=== PATIENT | male | born 1990 | race Two or more races ===

== ENCOUNTER 2017-05-10 02:13 | Emergency (ER) | payer MEDICAID ==
[~2017-05-10] VITALS: Ht 165.1 cm; Wt 81.6 kg
[2017-05-10 04:33] LABS: Basophils # (auto) 0.1 uL; Basophils % (auto) 0.5 % (0.0-2.0); Eosinophils # (auto) 0.5 uL; Eosinophils % (auto) 3.8 % (0.0-7.0); Hematocrit 46.1 % (41.0-53.0); Hemoglobin 15.8 g/dL (13.5-17.5); Lymphocytes # (auto) 2.7 uL; Lymphocytes % (auto) 20.3 % (10.0-50.0); Mean Corpuscular Hemoglobin 31.1 pg (28.0-32.0); Mean Corpuscular Hgb Conc. 34.2 g/dL (32.0-36.0); Mean Corpuscular Volume 90.9 fL (80.0-100.0); Mean Platelet Volume 10.2 fL (6.9-10.8); Monocytes # (auto) 0.6 uL; Monocytes % (auto) 4.8 % (0.0-12.0); Neutrophils # (auto) 9.4 uL; Neutrophils % (auto) 70.6 % (37.0-80.0); Nucleated Red Blood Cells % 0.1 %; Platelet Count (auto) 229 10^3/uL (140-450); Red Cell Distribution Width 13.1 % (11.8-14.3); White Blood Cell 13.3 10^3/uL (4.4-10.8)
[2017-05-10 04:53] LABS: BUN/Creatinine Ratio 18.5; Calcium 9.9 mg/dL (8.5-10.1); Potassium 3.6 mmol/L (3.5-5.1)
[2017-05-10 04:56] LABS: Bilirubin, Total 0.2 mg/dL (0.2-1.0); Total Protein 7.6 g/dL (6.4-8.2)
[2017-05-10 06:46] LABS: Urine Bilirubin Negative (Negative); Urine Blood Negative /uL (Negative); Urine Color Yellow (Yellow); Urine Glucose Normal (Normal); Urine Ketone Negative (Negative); Urine Mucus FEW (None Seen); Urine Nitrite Negative (Negative); Urine RBC 10 /hpf (0 - 3); Urine Squamous Epithelial Cell FEW /hpf (<5); Urine Urobilinogen Normal (Negative)
[2017-05-10 07:52] VITALS: BP 143/82
== END 2017-05-10 07:58 | disposition home or self-care (01) ==
LOC: ER 02:21
DX: R10.9 Unspecified abdominal pain (principal); R82.71 Bacteriuria; F15.10 Other stimulant abuse, uncomplicated; F17.210 Nicotine dependence, cigarettes, uncomplicated
CPT/HCPCS: 36415; 74176; 80053; 80307; 81001; 85025

== ENCOUNTER 2017-09-27 11:08 | Inpatient (IN) | payer MEDICAID ==
[~2017-09-27] VITALS: Ht 165.1 cm; Wt 80.8 kg
[2017-09-27 13:08] LABS: Basophils # (auto) 0.1 uL; Basophils % (auto) 0.3 % (0.0-2.0); Eosinophils # (auto) 0 uL; Eosinophils % (auto) 0.3 % (0.0-7.0); Hematocrit 48.5 % (41.0-53.0); Hemoglobin 16.2 g/dL (13.5-17.5); Lymphocytes # (auto) 0.9 uL; Lymphocytes % (auto) 5.4 % (10.0-50.0); Mean Corpuscular Hemoglobin 30.2 pg (28.0-32.0); Mean Corpuscular Hgb Conc. 33.5 g/dL (32.0-36.0); Mean Corpuscular Volume 90.2 fL (80.0-100.0); Monocytes # (auto) 1.1 uL; Monocytes % (auto) 6.9 % (0.0-12.0); Neutrophils # (auto) 14.5 uL; Neutrophils % (auto) 87.1 % (37.0-80.0); Platelet Count (auto) 274 10^3/uL (140-450); Red Blood Cells 5.37 10^6/uL (4.5-5.90); Red Cell Distribution Width 13.6 % (11.8-14.3); White Blood Cell 16.7 10^3/uL (4.4-10.8)
[2017-09-27 13:24] LABS: Albumin 4.4 g/dL (3.4-5.0); Calcium 10.4 mg/dL (8.5-10.1); Potassium 4.3 mmol/L (3.5-5.1)
[2017-09-27 13:33] LABS: Bilirubin, Total 0.7 mg/dL (0.2-1.0); Total Protein 8.7 g/dL (6.4-8.2)
[2017-09-27] MEDS ORDERED: SODIUM CHLORIDE 0.9% 1,000 ML IVB ONE (15:19)
[2017-09-27] MEDS ORDERED: ONDANSETRON HCL 4 MG/2 ML VIAL IV ONE (15:45)
[2017-09-27] MEDS ORDERED: SODIUM CHLORIDE 0.9% 1,000 ML IV ONE (15:45)
[2017-09-27 15:52] LABS: INR 0.92 (0.9-1.15)
[2017-09-27] MEDS ORDERED: PROMETHAZINE HCL 25 MG/ML 1ML IV PRN (17:45)
[2017-09-27] MEDS ORDERED: TEMAZEPAM 15 MG CAP PO PRN (17:45)
[2017-09-27] MEDS ORDERED: MORPHINE SULFATE 4 MG/ML SYR/VIAL IV PRN ×3 (17:45)
[2017-09-27] MEDS ORDERED: LORazepam 0.5 MG TAB PO PRN (17:45)
[2017-09-27] MEDS ORDERED: cefTRIAXone 1GM/10ml IVPUSH 10 ML IV ONE (17:45)
[2017-09-27] MEDS ORDERED: NITROGLYCERIN 0.4 MG SL TAB SL PRN (17:45)
[2017-09-27] MEDS: SODIUM CHLORIDE 0.9% 1,000 ML IV SCH (18:16)
[2017-09-27] MEDS ORDERED: chlordiazePOXIDE HCL 25 MG CAP PO PRN (18:30)
[2017-09-27] MEDS ORDERED: THIAMINE HCL 100 MG/ML 2ML VIAL IV ONE (18:30)
[2017-09-27] MEDS: metroNIDAZOLE 500MG/100ML 100 ML IV SCH (18:37)
[2017-09-27] MEDS: FAMOTIDINE (10MG/ML) 2ML VL IV SCH (18:37)
[2017-09-27 22:00] VITALS: BP 122/83
[2017-09-28] MEDS ORDERED: chlordiazePOXIDE HCL 5 MG CAP PO SCH
[2017-09-28] MEDS: metroNIDAZOLE 500MG/100ML 100 ML IV SCH ×4 (00:26→17:40)
[2017-09-28] MEDS: SODIUM CHLORIDE 0.9% 1,000 ML IV SCH ×2 (03:09→13:44)
[2017-09-28 05:31] VITALS: BP 115/55
[2017-09-28] MEDS: FAMOTIDINE (10MG/ML) 2ML VL IV SCH ×2 (05:40→17:40)
[2017-09-28 06:40] LABS: Basophils # (auto) 0.1 uL; Basophils % (auto) 0.5 % (0.0-2.0); Eosinophils # (auto) 0.7 uL; Eosinophils % (auto) 6.1 % (0.0-7.0); Hemoglobin 14.2 g/dL (13.5-17.5); Lymphocytes # (auto) 2.6 uL; Lymphocytes % (auto) 23.4 % (10.0-50.0); Mean Corpuscular Hemoglobin 30.8 pg (28.0-32.0); Mean Corpuscular Volume 93.5 fL (80.0-100.0); Monocytes # (auto) 0.7 uL; Monocytes % (auto) 6.8 % (0.0-12.0); Neutrophils # (auto) 6.9 uL; Neutrophils % (auto) 63.2 % (37.0-80.0); Nucleated Red Blood Cells % 0.2 %; Platelet Count (auto) 187 10^3/uL (140-450); Red Cell Distribution Width 13.6 % (11.8-14.3); White Blood Cell 10.9 10^3/uL (4.4-10.8)
[2017-09-28 07:09] LABS: Albumin 3.2 g/dL (3.4-5.0); BUN/Creatinine Ratio 11.9; Bilirubin, Total 0.7 mg/dL (0.2-1.0); Calcium 8.8 mg/dL (8.5-10.1); Potassium 3.7 mmol/L (3.5-5.1); Total Protein 6.7 g/dL (6.4-8.2)
[2017-09-28 08:00] VITALS: BP 133/83
[2017-09-28 09:00] VITALS: BP 133/83
[2017-09-28] MEDS ORDERED: cefTRIAXone 1GM/10ml IVPUSH 10 ML IV SCH (09:00)
[2017-09-28] MEDS: THIAMINE HCL 100 MG/ML 2ML VIAL IV SCH (09:52)
[2017-09-28 13:00] VITALS: BP 133/70
[2017-09-28 17:00] VITALS: BP 114/60
[2017-09-28] MEDS ORDERED: MORPHINE SULFATE 4 MG/ML SYR/VIAL IV PRN (21:00)
[2017-09-28] MEDS: D5W/SOD CHL 0.45%/KCL 20MEQ 1,000 ML IV SCH (21:00)
[2017-09-28] MEDS ORDERED: ONDANSETRON HCL 4 MG/2 ML VIAL IV PRN (21:00)
[2017-09-28] MEDS: cefTRIAXone 1GM/10ml IVPUSH 10 ML IV SCH (21:00)
[2017-09-28] MEDS ORDERED: NORPTMEDS CO (21:11)
[2017-09-28 22:48] VITALS: BP 107/72
[2017-09-29] MEDS: metroNIDAZOLE 500MG/100ML 100 ML IV SCH ×3 (00:30→11:27)
[2017-09-29] MEDS: D5W/SOD CHL 0.45%/KCL 20MEQ 1,000 ML IV SCH (04:01)
[2017-09-29 05:18] VITALS: BP 119/69
[2017-09-29] MEDS ORDERED: EZ-GAS II GRANULES (RADIOLOGY USE) PO ONE (05:32)
[2017-09-29 06:19] LABS: Basophils # (auto) 0.1 uL; Basophils % (auto) 0.8 % (0.0-2.0); Eosinophils # (auto) 0.6 uL; Eosinophils % (auto) 7.7 % (0.0-7.0); Hematocrit 44.5 % (41.0-53.0); Hemoglobin 14.9 g/dL (13.5-17.5); Lymphocytes # (auto) 2.2 uL; Lymphocytes % (auto) 28.2 % (10.0-50.0); Mean Corpuscular Hemoglobin 30.5 pg (28.0-32.0); Mean Corpuscular Hgb Conc. 33.6 g/dL (32.0-36.0); Mean Corpuscular Volume 90.9 fL (80.0-100.0); Monocytes # (auto) 0.5 uL; Neutrophils # (auto) 4.5 uL; Neutrophils % (auto) 57.3 % (37.0-80.0); Platelet Count (auto) 225 10^3/uL (140-450); Red Cell Distribution Width 13.2 % (11.8-14.3); White Blood Cell 7.8 10^3/uL (4.4-10.8)
[2017-09-29 06:20] LABS: Magnesium 2.1 mg/dL (1.6-2.6)
[2017-09-29] MEDS: FAMOTIDINE (10MG/ML) 2ML VL IV SCH (06:40)
[2017-09-29 06:43] LABS: Phosphorus 2.9 mg/dL (2.5-4.90)
[2017-09-29 08:00] VITALS: BP 114/81
[2017-09-29 08:10] VITALS: BP 114/81
[2017-09-29 09:29] LABS: Hepatitis B Surface Antibody Positive
[2017-09-29 09:39] LABS: Hepatitis B Surface Antigen Negative (Negative)
[2017-09-29 09:45] LABS: Hepatitis B Surface Antigen Negative (Negative)
[2017-09-29 10:07] LABS: Hepatitis A Total Antibody Positive; Hepatitis C Antibody Negative (Negative)
[2017-09-29 10:08] LABS: Hepatitis B Core Total AB Negative
[2017-09-29 10:10] LABS: Hepatitis C Antibody Negative (Negative)
[2017-09-29 10:11] LABS: Hepatitis B Core IgM Negative
[2017-09-29 10:13] LABS: Hepatitis A Ab IgM Negative
[2017-09-29] MEDS: cefTRIAXone 1GM/10ml IVPUSH 10 ML IV SCH (10:28)
[2017-09-29] MEDS: THIAMINE HCL 100 MG/ML 2ML VIAL IV SCH (10:28)
[2017-09-29 12:02] VITALS: BP 133/83
[2017-09-29 12:03] VITALS: BP 113/65
[2017-09-29 12:04] VITALS: BP 113/65
[2017-09-29 12:57] LABS: Albumin 3.5 g/dL (3.4-5.0); Calcium 9.4 mg/dL (8.5-10.1); Potassium 4.2 mmol/L (3.5-5.1)
[2017-09-29 12:59] LABS: BUN/Creatinine Ratio 15.9
[2017-09-29 13:02] LABS: Bilirubin, Total 0.4 mg/dL (0.2-1.0); Total Protein 7.2 g/dL (6.4-8.2)
== END 2017-09-29 17:00 | disposition home or self-care (01) | DRG 251 ==
LOC: ER 11:08 → TELE 11:09 → TELE-WESTW 20:12
PROVIDERS: ADMIT Internal Medicine; ATTEND Internal Medicine
DX: R10.9 Unspecified abdominal pain (principal); K80.00 Calculus of gallbladder with acute cholecystitis without obstruction; B19.10 Unspecified viral hepatitis B without hepatic coma; F10.20 Alcohol dependence, uncomplicated; N20.0 Calculus of kidney; F17.210 Nicotine dependence, cigarettes, uncomplicated; K82.8 Other specified diseases of gallbladder; Z82.49 Family history of ischemic heart disease and other diseases of the circulatory system; Z83.3 Family history of diabetes mellitus
CPT/HCPCS: 36415; 71045; 74176; 76705; 78226; 80053; 80061; 80074; 80320; 82150; 83690; 83735; 84100; 85025; 85610; 85652; 85730; 86141; 86704; 86706; 86708; 86803; 86850; 86900; 86901; 87340; 87517; 94761; 96361; 96374; 96375; J2405; J3490

== ENCOUNTER 2022-07-10 17:37 | Emergency (ER) | payer MEDICAID ==
[~2022-07-10] VITALS: Ht 165.1 cm; Wt 82.1 kg
[~2022-07-10 17:37] MED LIST: NORPTMEDS CO
[2022-07-10 17:55] VITALS: BP 142/90
== END 2022-07-10 22:41 | disposition left against medical advice (07) ==
LOC: ER 17:37
DX: S91.132A Puncture wound without foreign body of left great toe without damage to nail, initial encounter (principal); Z53.21 Procedure and treatment not carried out due to patient leaving prior to being seen by health care provider; W45.0XXA Nail entering through skin, initial encounter; Y93.89 Activity, other specified; Y92.89 Other specified places as the place of occurrence of the external cause; Y99.8 Other external cause status